=== PATIENT | female | born 1955 | race Caucasian/White ===

== ENCOUNTER 2018-05-13 10:48 | Outpatient (CLI) | payer BC, OTHER ==
[~2018-05-13 10:48] MED LIST: CALC1CAP28 PO; LORA-258 PO; PROG200C15 PO
== END 2018-05-13 20:58 | disposition home or self-care (01) ==
LOC: SRD 10:48
PROVIDERS: ATTEND Internal Medicine
DX: Z01.818 Encounter for other preprocedural examination (principal); R05 Cough
CPT/HCPCS: 71046-TC